=== PATIENT | male | born 1960 | race African-American/Black ===

== ENCOUNTER 2018-08-07 20:59 | Inpatient (IN) | payer OTHER ==
[~2018-08-07] VITALS: Ht 175.3 cm; Wt 86.9 kg
[~2018-08-07 20:59] MED LIST: [UNRECOGNIZED DRUG - REMARK]
[2018-08-07] MEDS ORDERED: ALBUTEROL (0.083%) 2.5MG/3ML NEB HHN STA (21:34)
[2018-08-07] MEDS ORDERED: IPRATROPIUM BROMIDE (0.02%) 0.5MG/2.5ML NEB HHN STA (21:34)
[2018-08-07] MEDS ORDERED: METHYLPREDNISOLONE SOD SUCC 125 MG/2 ML VIAL IV STA (21:34)
[2018-08-07] MEDS ORDERED: MAGNESIUM 2 G PREMIX 50 ML IV ONE (21:45)
[2018-08-07 23:14] LABS: BASOPHILS % 0.5 % (0.0-2.0); EOSINOPHILS % 0.6 % (0.0-5.0); HEMATOCRIT. 29.4 % (42.0-52.0); HEMOGLOBIN. 9.2 g/dL (14.0-18.0); LYMPHOCYTES % 13.8 % (20.0-50.0); MEAN CORPUSCULAR HEMOGLOBIN 25.7 pg (28.0-32.0); MEAN CORPUSCULAR VOLUME 81.6 fL (80.0-94.0); MEAN PLATELET VOLUME 8.1 fl (7.4-10.4); MONOCYTES % 7.7 % (2.0-8.0); NEUTROPHILS % 77.4 % (40.0-76.0); PLATELET 256 x1000/uL (130-400); RED CELL DISTRIBUTION WIDTH 20.6 % (11.6-14.6)
[2018-08-07 23:20] LABS: CHLORIDE 118 mEq/L (98-107)
[2018-08-07 23:24] LABS: INR 1.2; PROTHROMBIN TIME 12.5 sec (9.1-11.1)
[2018-08-07] MEDS ORDERED: NITROGLYCERIN OINT 1GM/INCH UDPKT TD ONE (23:30)
[2018-08-07] MEDS ORDERED: FUROSEMIDE 40MG/4ML VIAL IVP ONE (23:30)
[2018-08-08] VITALS (8 sets, daily range): BP systolic 145–222; BP diastolic 99–112
[2018-08-08] MEDS ORDERED: HYDRALAZINE 20MG/ML VIAL IV ONE ×2 (00:15→01:30)
[2018-08-08] MEDS ORDERED: NICARDIPINE 40MG/200ML PREMIX 200 ML IV SCH (04:45)
[2018-08-08] MEDS ORDERED: MAGNESIUM/ALUMINUM HYDROXIDE/SIMETHICONE 30ML UDC PO PRN (08:00)
[2018-08-08] MEDS ORDERED: ONDANSETRON HCL 4MG/2ML INJ IV PRN (08:00)
[2018-08-08] MEDS ORDERED: ACETAMINOPHEN 325MG TABLET PO PRN (08:00)
[2018-08-08] MEDS ORDERED: INSULIN REGULAR (HUMULIN R) 300UNITS/3ML SUBCUT NR (08:30)
[2018-08-08] MEDS ORDERED: HYDRALAZINE 20MG/ML VIAL IV NR ×2 (08:30→16:45)
[2018-08-08 09:12] LABS: PHOSPHORUS 3.9 mg/dL (2.5-4.9)
[2018-08-08] MEDS: CLONIDINE 0.1MG TABLET PO PRN ×2 (10:13→16:05)
[2018-08-08 11:15] LABS: HEPATITIS B SURFACE ANTIGEN NEGATIVE
[2018-08-08 11:45] LABS: HEPATITIS A AB IGM NEGATIVE (NEGATIVE)
[2018-08-08] MEDS: NICOTINE 14MG PATCH TD SCH (11:53)
[2018-08-08] MEDS: AMLODIPINE 5MG TABLET PO SCH ×2 (11:53→20:38)
[2018-08-08] MEDS: METHYLPREDNISOLONE SOD SUCC 40 MG/ML VIAL IV SCH ×2 (11:54→21:32)
[2018-08-08] MEDS ORDERED: NITROGLYCERIN OINT 1GM/INCH UDPKT TD SCH (12:01)
[2018-08-08 12:21] LABS: CREATINE KINASE 232 IU/L (39-308)
[2018-08-08] MEDS: IPRATROPIUM/ALBUTEROL 0.5-3(2.5)MG/3ML NEB HHN SCH ×3 (13:25→20:23)
[2018-08-08] MEDS ORDERED: DEXTROSE 50% WATER 50ML SYRINGE IV PRN (16:00)
[2018-08-08] MEDS: CLONIDINE 0.1MG TABLET PO SCH ×2 (16:04→21:37)
[2018-08-08] MEDS: INSULIN LISPRO 100 UNITS/ML SUBCUT SCH ×3 (16:06→20:38)
[2018-08-08] MEDS: BLOOD SUGAR DIAGNOSTIC STRIP TEST SCH ×2 (17:00→20:30)
[2018-08-08] MEDS: FUROSEMIDE 40MG/4ML VIAL IVP SCH (17:29)
[2018-08-08 20:08] LABS: CREATINE KINASE 178 IU/L (39-308)
[2018-08-08] MEDS ORDERED: INSULIN GLARGINE UD 100 UNITS/ML SYR SUBCUT SCH (22:00)
[2018-08-08 23:17] LABS: CREATINE KINASE 151 IU/L (39-308)
[2018-08-09] VITALS (78 sets, daily range): BP systolic 143–223; BP diastolic 54–135
[2018-08-09] MEDS: NITROGLYCERIN 50MG PREMIX 250 ML IV PRN ×6 (00:35→22:43)
[2018-08-09] MEDS: HYDROCODONE/ACETAMINOPHEN 5/325MG TABLET PO PRN ×2 (00:36→13:03)
[2018-08-09 01:12] LABS: CLARITY URINE CLOUDY (CLEAR); COLOR URINE YELLOW (YELLOW); KETONES URINE NEGATIVE (NEGATIVE); LEUKOCYTE ESTERASE URINE NEGATIVE (NEGATIVE); NITRITE URINE NEGATIVE (NEGATIVE); OCCULT BLOOD URINE NEGATIVE (NEGATIVE); PROTEIN URINE 3+ (NEGATIVE); SPECIFIC GRAVITY URINE 1.016 (1.005-1.030); UROBILINOGEN URINE 0.2 E.U./dL (0.2-1.0)
[2018-08-09 01:39] LABS: *AMPHETAMINES SCREEN URINE NEGATIVE (NEGATIVE)
[2018-08-09 01:40] LABS: *BARBITURATES SCREEN URINE NEGATIVE (NEGATIVE); *BENZODIAZEPINES SCREEN URINE NEGATIVE (NEGATIVE); *COCAINE SCREEN URINE NEGATIVE (NEGATIVE)
[2018-08-09 01:42] LABS: METHADONE URINE SCREEN NEGATIVE (NEGATIVE)
[2018-08-09 01:43] LABS: CANNABINOID URINE SCREEN PRESUMTIVE POSITIVE (NEGATIVE); OPIATES URINE SCREEN NEGATIVE (NEGATIVE); PHENCYCLIDINE URINE SCREEN NEGATIVE (NEGATIVE)
[2018-08-09] MEDS: IPRATROPIUM/ALBUTEROL 0.5-3(2.5)MG/3ML NEB HHN SCH ×3 (02:29→20:45)
[2018-08-09] MEDS: CLONIDINE 0.1MG TABLET PO PRN (03:23)
[2018-08-09] MEDS: METHYLPREDNISOLONE SOD SUCC 40 MG/ML VIAL IV SCH ×3 (05:26→21:47)
[2018-08-09] MEDS: CLONIDINE 0.1MG TABLET PO SCH (05:26)
[2018-08-09 06:01] LABS: HEMATOCRIT. 25.2 % (42.0-52.0); HEMOGLOBIN. 7.8 g/dL (14.0-18.0); MEAN CORPUSCULAR HEMOGLOBIN 25.6 pg (28.0-32.0); MEAN CORPUSCULAR VOLUME 82.4 fL (80.0-94.0); MEAN PLATELET VOLUME 8.2 fl (7.4-10.4); PLATELET 206 x1000/uL (130-400); RED BLOOD CELL COUNT 3.06 mill/uL (4.7-6.1); RED CELL DISTRIBUTION WIDTH 20.7 % (11.6-14.6)
[2018-08-09] MEDS: BLOOD SUGAR DIAGNOSTIC STRIP TEST SCH ×4 (06:03→21:00)
[2018-08-09] MEDS: FUROSEMIDE 40MG/4ML VIAL IVP SCH ×2 (06:15→17:58)
[2018-08-09] MEDS: INSULIN LISPRO 100 UNITS/ML SUBCUT SCH ×4 (06:15→21:49)
[2018-08-09 06:40] LABS: CHLORIDE 115 mEq/L (98-107)
[2018-08-09 06:49] LABS: LDL CHOLESTEROL 40 mg/dL (5-100)
[2018-08-09 06:50] LABS: HDL CHOLESTEROL 50 mg/dL (40-59)
[2018-08-09 08:15] LABS: HIV SCREEN 4G Non Reactive (Non Reactive)
[2018-08-09 08:30] LABS: PLATELET ESTIMATE NORMAL
[2018-08-09] MEDS ORDERED: SODIUM POLYSTYRENE SULFONATE 15 G/60 ML BOT PO SCH (08:30)
[2018-08-09] MEDS: AMLODIPINE 5MG TABLET PO SCH ×2 (08:42→21:48)
[2018-08-09] MEDS: CITRIC ACID/SODIUM CITRATE SOLN 30ML UDC PO SCH ×3 (08:42→17:00)
[2018-08-09] MEDS: NICOTINE 14MG PATCH TD SCH (08:43)
[2018-08-09 08:58] LABS: BG BASE EXCESS -6.4 mmol/L (-2.0-2.0); BG CARBOXYHEMOGLOBIN 0.6 % (0.5-1.5); BG DEOXYHEMOGLOBIN 3.5 % (0.0-5.0); BG FRACTION INSPIRED OXYGEN 28; BG HCO3 ACT 17.8 mmol/L (22.0-26.0); BG METHEMOGLOBIN 0.5 % (0.0-1.5); BG OXYGEN SATURATION 96.5 % (92.0-98.5); BG OXYHEMOGLOBIN 95.4 % (94.0-97.0); BG PCO2 30.2 mmHg (35.0-45.0); BG PH 7.388 (7.350-7.450); BG PO2 86.7 mmHg (75.0-100.0); BG SAMPLE SITE RIGHT RADIAL; BG TOTAL HEMOGLOBIN 8.6 g/dL (12.0-18.0); BG VENT MODE NASAL CANNULA
[2018-08-09] MEDS ORDERED: LIDOCAINE HCL 1% 20ML VIAL (Pyxis) INJ ONE (10:03)
[2018-08-09] MEDS ORDERED: LIDOCAINE HCL/EPINEPHRINE 1%-EPI 1:100,000 20 ML VIAL INFIL NR (12:00)
[2018-08-09] MEDS ORDERED: INSULIN GLARGINE UD 100 UNITS/ML SYR SUBCUT NR (12:00)
[2018-08-09] MEDS: CLONIDINE 0.2MG TABLET PO SCH ×2 (13:02→21:48)
[2018-08-09] MEDS ORDERED: MORPHINE SULFATE 4 MG/ML CPJ (NOT FOR IM USE) IV NR (15:00)
[2018-08-09] MEDS: HYDRALAZINE HCL 50MG TABLET PO SCH ×2 (15:13→21:48)
[2018-08-09] MEDS: CLONIDINE 0.2MG TABLET PO PRN (18:38)
[2018-08-09] MEDS ORDERED: EPOETIN ALFA 10000UNITS/ML VIAL SUBCUT SCH (21:00)
[2018-08-09] MEDS: INSULIN GLARGINE UD 100 UNITS/ML SYR SUBCUT SCH (22:44)
[2018-08-10] VITALS (87 sets, daily range): BP systolic 111–232; BP diastolic 56–156
[2018-08-10] MEDS: IPRATROPIUM/ALBUTEROL 0.5-3(2.5)MG/3ML NEB HHN SCH ×3 (01:04→21:11)
[2018-08-10 06:20] LABS: ANTI-NUCLEAR ANTIBODIES DIRECT Negative (Negative); COMPLEMENT C3 178 mg/dL (82-167)
[2018-08-10] MEDS: BLOOD SUGAR DIAGNOSTIC STRIP TEST SCH ×4 (06:30→21:17)
[2018-08-10] MEDS: METHYLPREDNISOLONE SOD SUCC 40 MG/ML VIAL IV SCH ×2 (06:43→17:19)
[2018-08-10] MEDS: HYDRALAZINE HCL 50MG TABLET PO SCH ×3 (06:44→21:27)
[2018-08-10] MEDS: CLONIDINE 0.2MG TABLET PO SCH ×3 (06:44→21:26)
[2018-08-10] MEDS: INSULIN LISPRO 100 UNITS/ML SUBCUT SCH ×4 (06:45→21:28)
[2018-08-10 07:30] LABS: HEMATOCRIT. 25.1 % (42.0-52.0); HEMOGLOBIN. 7.7 g/dL (14.0-18.0); MEAN CORPUSCULAR HEMOGLOBIN 25.6 pg (28.0-32.0); MEAN CORPUSCULAR VOLUME 83.5 fL (80.0-94.0); MEAN PLATELET VOLUME 8.3 fl (7.4-10.4); PLATELET 239 x1000/uL (130-400); RED BLOOD CELL COUNT 3.01 mill/uL (4.7-6.1); RED CELL DISTRIBUTION WIDTH 20.4 % (11.6-14.6)
[2018-08-10] MEDS ORDERED: LIDOCAINE HCL 1% 20ML VIAL (Pyxis) INJ ONE (07:51)
[2018-08-10] MEDS: CITRIC ACID/SODIUM CITRATE SOLN 30ML UDC PO SCH ×3 (09:00→17:19)
[2018-08-10] MEDS: FUROSEMIDE 40MG/4ML VIAL IVP SCH ×2 (09:14→17:19)
[2018-08-10] MEDS: AMLODIPINE 5MG TABLET PO SCH ×2 (09:14→21:26)
[2018-08-10] MEDS ORDERED: NICARDIPINE 100 MG in SODIUM CHLORIDE 0.9% 60 ML IV SCH (09:15)
[2018-08-10] MEDS: NICOTINE 14MG PATCH TD SCH (09:15)
[2018-08-10 09:59] LABS: INR 1.2; PARTIAL THROMBOPLASTIN TIME 27.1 sec (23.4-31.0); PROTHROMBIN TIME 11.9 sec (9.1-11.1)
[2018-08-10] MEDS: NICARDIPINE 100 MG in SODIUM CHLORIDE 0.9% 60 ML IV PRN ×2 (10:21→21:27)
[2018-08-10 10:38] LABS: PLATELET ESTIMATE NORMAL
[2018-08-10] MEDS: MORPHINE SULFATE 4 MG/ML CPJ (NOT FOR IM USE) IV PRN (10:43)
[2018-08-10] MEDS: INSULIN GLARGINE UD 100 UNITS/ML SYR SUBCUT SCH (21:28)
[2018-08-11] VITALS (52 sets, daily range): BP systolic 114–222; BP diastolic 51–107
[2018-08-11] MEDS: IPRATROPIUM/ALBUTEROL 0.5-3(2.5)MG/3ML NEB HHN SCH ×3 (02:23→20:34)
[2018-08-11] MEDS: MORPHINE SULFATE 4 MG/ML CPJ (NOT FOR IM USE) IV PRN ×3 (04:43→23:29)
[2018-08-11 04:51] LABS: HEMATOCRIT. 26.4 % (42.0-52.0); HEMOGLOBIN. 8.3 g/dL (14.0-18.0); MEAN CORPUSCULAR HEMOGLOBIN 25.7 pg (28.0-32.0); MEAN CORPUSCULAR VOLUME 81.9 fL (80.0-94.0); MEAN PLATELET VOLUME 7.7 fl (7.4-10.4); PLATELET 184 x1000/uL (130-400); RED BLOOD CELL COUNT 3.22 mill/uL (4.7-6.1); RED CELL DISTRIBUTION WIDTH 20.8 % (11.6-14.6)
[2018-08-11] MEDS: BLOOD SUGAR DIAGNOSTIC STRIP TEST SCH ×4 (06:20→21:15)
[2018-08-11] MEDS: METHYLPREDNISOLONE SOD SUCC 40 MG/ML VIAL IV SCH (06:28)
[2018-08-11] MEDS: FUROSEMIDE 40MG/4ML VIAL IVP SCH (06:28)
[2018-08-11] MEDS: HYDRALAZINE HCL 50MG TABLET PO SCH ×3 (06:29→21:16)
[2018-08-11] MEDS: CLONIDINE 0.2MG TABLET PO SCH (06:29)
[2018-08-11] MEDS: INSULIN LISPRO 100 UNITS/ML SUBCUT SCH ×4 (06:30→21:17)
[2018-08-11] MEDS: AMLODIPINE 5MG TABLET PO SCH ×2 (08:38→21:17)
[2018-08-11] MEDS: NICOTINE 14MG PATCH TD SCH (08:38)
[2018-08-11 08:57] LABS: TOTAL IRON BINDING CAPACITY 255 ug/dL (250-450)
[2018-08-11 10:45] LABS: PLATELET ESTIMATE NORMAL
[2018-08-11] MEDS: CLONIDINE 0.1MG TABLET PO SCH ×2 (14:11→21:16)
[2018-08-11] MEDS: BUDESONIDE 0.5MG/2ML NEB HHN SCH (20:36)
[2018-08-11] MEDS: INSULIN GLARGINE UD 100 UNITS/ML SYR SUBCUT SCH (21:18)
[2018-08-12] VITALS (80 sets, daily range): BP systolic 117–179; BP diastolic 59–103
[2018-08-12] MEDS: CLONIDINE 0.2MG TABLET PO PRN ×2 (00:36→18:38)
[2018-08-12] MEDS: IPRATROPIUM/ALBUTEROL 0.5-3(2.5)MG/3ML NEB HHN SCH ×4 (01:17→20:28)
[2018-08-12] MEDS: NICARDIPINE 100 MG in SODIUM CHLORIDE 0.9% 60 ML IV PRN (02:54)
[2018-08-12 05:52] LABS: HEMATOCRIT. 28.5 % (42.0-52.0); HEMOGLOBIN. 8.8 g/dL (14.0-18.0); MEAN CORPUSCULAR HEMOGLOBIN 25.9 pg (28.0-32.0); MEAN CORPUSCULAR VOLUME 83.8 fL (80.0-94.0); MEAN PLATELET VOLUME 7.8 fl (7.4-10.4); PLATELET 199 x1000/uL (130-400); RED CELL DISTRIBUTION WIDTH 20.3 % (11.6-14.6)
[2018-08-12] MEDS: BLOOD SUGAR DIAGNOSTIC STRIP TEST SCH ×4 (06:04→20:34)
[2018-08-12] MEDS: CLONIDINE 0.1MG TABLET PO SCH ×3 (06:09→21:26)
[2018-08-12] MEDS: HYDRALAZINE HCL 50MG TABLET PO SCH ×3 (06:09→21:26)
[2018-08-12] MEDS: INSULIN LISPRO 100 UNITS/ML SUBCUT SCH ×4 (06:10→20:34)
[2018-08-12] MEDS ORDERED: HEPARIN SODIUM 1,000 UNIT/1ML VIAL IV SCH (09:00)
[2018-08-12] MEDS: BUDESONIDE 0.5MG/2ML NEB HHN SCH ×2 (09:40→20:28)
[2018-08-12 11:13] LABS: PLATELET ESTIMATE NORMAL
[2018-08-12] MEDS: NIFEDIPINE XL 60MG TAB PO SCH ×2 (11:15→20:34)
[2018-08-12] MEDS: PREDNISONE 20MG TABLET PO SCH (11:15)
[2018-08-12] MEDS: NICOTINE 14MG PATCH TD SCH (11:15)
[2018-08-12] MEDS: MORPHINE SULFATE 4 MG/ML CPJ (NOT FOR IM USE) IV PRN ×2 (11:24→20:50)
[2018-08-12] MEDS: INSULIN GLARGINE UD 100 UNITS/ML SYR SUBCUT SCH (21:27)
[2018-08-13] VITALS (41 sets, daily range): BP systolic 122–176; BP diastolic 51–95
[2018-08-13] MEDS: IPRATROPIUM/ALBUTEROL 0.5-3(2.5)MG/3ML NEB HHN SCH ×4 (02:01→20:19)
[2018-08-13] MEDS: MORPHINE SULFATE 4 MG/ML CPJ (NOT FOR IM USE) IV PRN ×3 (02:24→12:45)
[2018-08-13] MEDS: CLONIDINE 0.2MG TABLET PO PRN (03:45)
[2018-08-13 05:47] LABS: HEMATOCRIT. 29.6 % (42.0-52.0); HEMOGLOBIN. 9.3 g/dL (14.0-18.0); MEAN CORPUSCULAR HEMOGLOBIN 25.7 pg (28.0-32.0); MEAN CORPUSCULAR VOLUME 81.8 fL (80.0-94.0); PLATELET 222 x1000/uL (130-400); RED BLOOD CELL COUNT 3.61 mill/uL (4.7-6.1)
[2018-08-13] MEDS: CLONIDINE 0.1MG TABLET PO SCH ×3 (05:51→20:53)
[2018-08-13] MEDS: HYDRALAZINE HCL 50MG TABLET PO SCH ×3 (05:51→20:53)
[2018-08-13] MEDS: INSULIN LISPRO 100 UNITS/ML SUBCUT SCH ×4 (05:51→20:52)
[2018-08-13] MEDS: BLOOD SUGAR DIAGNOSTIC STRIP TEST SCH ×4 (05:51→20:54)
[2018-08-13] MEDS: BUDESONIDE 0.5MG/2ML NEB HHN SCH ×2 (08:19→20:19)
[2018-08-13] MEDS: PREDNISONE 20MG TABLET PO SCH (08:33)
[2018-08-13] MEDS: NIFEDIPINE XL 60MG TAB PO SCH ×2 (08:33→20:52)
[2018-08-13] MEDS: NICOTINE 14MG PATCH TD SCH (08:34)
[2018-08-13] MEDS ORDERED: LACTULOSE 20G/30ML UDC PO NR (11:09)
[2018-08-13 14:10] LABS: PLATELET ESTIMATE NORMAL
[2018-08-13] MEDS: IRON SUCROSE COMPLEX 100 MG/5 ML ML IV SCH (14:21)
[2018-08-13] MEDS: LACTULOSE 20G/30ML UDC PO PRN (20:52)
[2018-08-13] MEDS: INSULIN GLARGINE UD 100 UNITS/ML SYR SUBCUT SCH (22:33)
[2018-08-14] VITALS (25 sets, daily range): BP systolic 138–202; BP diastolic 73–98
[2018-08-14] MEDS: CLONIDINE 0.2MG TABLET PO PRN (00:51)
[2018-08-14] MEDS ORDERED: [UNRECOGNIZED DRUG - REMARK] (03:24)
[2018-08-14 05:46] LABS: HEMATOCRIT. 29.6 % (42.0-52.0); HEMOGLOBIN. 9.1 g/dL (14.0-18.0); MEAN CORPUSCULAR HEMOGLOBIN 25.4 pg (28.0-32.0); MEAN CORPUSCULAR VOLUME 82.7 fL (80.0-94.0); PLATELET 215 x1000/uL (130-400); RED BLOOD CELL COUNT 3.58 mill/uL (4.7-6.1); RED CELL DISTRIBUTION WIDTH 20.4 % (11.6-14.6)
[2018-08-14] MEDS: INSULIN LISPRO 100 UNITS/ML SUBCUT SCH ×5 (06:39→21:20)
[2018-08-14] MEDS: CLONIDINE 0.1MG TABLET PO SCH (06:40)
[2018-08-14] MEDS: HYDRALAZINE HCL 50MG TABLET PO SCH ×3 (06:41→21:18)
[2018-08-14] MEDS: BLOOD SUGAR DIAGNOSTIC STRIP TEST SCH ×4 (06:41→21:00)
[2018-08-14] MEDS: MORPHINE SULFATE 4 MG/ML CPJ (NOT FOR IM USE) IV PRN (06:50)
[2018-08-14 07:20] LABS: PLATELET ESTIMATE NORMAL
[2018-08-14] MEDS: NICOTINE 14MG PATCH TD SCH (08:08)
[2018-08-14] MEDS: IRON SUCROSE COMPLEX 100 MG/5 ML ML IV SCH (08:08)
[2018-08-14] MEDS: NIFEDIPINE XL 60MG TAB PO SCH (08:09)
[2018-08-14] MEDS: PREDNISONE 20MG TABLET PO SCH (08:09)
[2018-08-14] MEDS: IPRATROPIUM/ALBUTEROL 0.5-3(2.5)MG/3ML NEB HHN SCH ×4 (08:35→19:55)
[2018-08-14] MEDS: BUDESONIDE 0.5MG/2ML NEB HHN SCH (08:35)
[2018-08-14] MEDS ORDERED: TERBUTALINE SULFATE 1MG/ML VIAL SUBCUT NR (14:00)
[2018-08-14] MEDS ORDERED: HEPARIN SODIUM 1,000 UNIT/1ML VIAL IV NR (15:00)
[2018-08-14] MEDS: DILTIAZEM HCL 60MG TABLET PO SCH ×2 (16:23→21:17)
[2018-08-14] MEDS: CLONIDINE 0.2MG TABLET PO SCH ×2 (16:23→21:18)
[2018-08-14] MEDS ORDERED: INSULIN GLARGINE UD 100 UNITS/ML SYR SUBCUT SCH (22:00)
[2018-08-15] VITALS (11 sets, daily range): BP systolic 123–154; BP diastolic 57–88
[2018-08-15] MEDS: IPRATROPIUM/ALBUTEROL 0.5-3(2.5)MG/3ML NEB HHN SCH ×4 (01:15→20:35)
[2018-08-15] MEDS: HYDRALAZINE HCL 50MG TABLET PO SCH ×3 (05:23→21:13)
[2018-08-15] MEDS: DILTIAZEM HCL 60MG TABLET PO SCH ×3 (05:24→21:13)
[2018-08-15] MEDS: CLONIDINE 0.2MG TABLET PO SCH ×3 (05:24→21:13)
[2018-08-15 07:56] LABS: BASOPHILS % 0.5 % (0.0-2.0); EOSINOPHILS % 0.7 % (0.0-5.0); HEMATOCRIT. 28.2 % (42.0-52.0); HEMOGLOBIN. 8.8 g/dL (14.0-18.0); LYMPHOCYTES % 10.7 % (20.0-50.0); MEAN CORPUSCULAR VOLUME 82.8 fL (80.0-94.0); MEAN PLATELET VOLUME 8.1 fl (7.4-10.4); MONOCYTES % 6.2 % (2.0-8.0); NEUTROPHILS % 81.9 % (40.0-76.0); PLATELET 186 x1000/uL (130-400); RED BLOOD CELL COUNT 3.41 mill/uL (4.7-6.1); RED CELL DISTRIBUTION WIDTH 20.1 % (11.6-14.6)
[2018-08-15] MEDS: INSULIN LISPRO 100 UNITS/ML SUBCUT SCH ×4 (08:00→21:00)
[2018-08-15] MEDS: BLOOD SUGAR DIAGNOSTIC STRIP TEST SCH ×4 (08:04→21:03)
[2018-08-15] MEDS: NICOTINE 14MG PATCH TD SCH (08:31)
[2018-08-15] MEDS: IRON SUCROSE COMPLEX 100 MG/5 ML ML IV SCH (08:31)
[2018-08-15] MEDS: PREDNISONE 20MG TABLET PO SCH (08:31)
[2018-08-15] MEDS ORDERED: TERBUTALINE SULFATE 1MG/ML VIAL SUBCUT NR (17:00)
[2018-08-15] MEDS: INSULIN GLARGINE UD 100 UNITS/ML SYR SUBCUT SCH (21:04)
[2018-08-15] MEDS: LACTULOSE 20G/30ML UDC PO PRN (21:13)
[2018-08-16] VITALS: BP 179/83
[2018-08-16] MEDS: IPRATROPIUM/ALBUTEROL 0.5-3(2.5)MG/3ML NEB HHN SCH ×4 (01:19→20:00)
[2018-08-16 04:20] VITALS: BP 167/79
[2018-08-16] MEDS: CLONIDINE 0.2MG TABLET PO SCH ×3 (06:11→23:29)
[2018-08-16] MEDS: HYDRALAZINE HCL 50MG TABLET PO SCH ×3 (06:11→21:53)
[2018-08-16] MEDS: DILTIAZEM HCL 60MG TABLET PO SCH ×3 (06:11→21:53)
[2018-08-16] MEDS: BLOOD SUGAR DIAGNOSTIC STRIP TEST SCH ×4 (06:12→21:43)
[2018-08-16] MEDS: INSULIN LISPRO 100 UNITS/ML SUBCUT SCH ×5 (06:12→21:56)
[2018-08-16 08:00] VITALS: BP 146/70
[2018-08-16] MEDS: NICOTINE 14MG PATCH TD SCH (09:00)
[2018-08-16] MEDS: PREDNISONE 20MG TABLET PO SCH (09:00)
[2018-08-16 12:04] VITALS: BP 137/68
[2018-08-16 16:16] VITALS: BP 189/78
[2018-08-16 20:00] VITALS: BP 172/82
[2018-08-16] MEDS: MORPHINE SULFATE 4 MG/ML CPJ (NOT FOR IM USE) IV PRN (21:03)
[2018-08-16] MEDS: INSULIN GLARGINE UD 100 UNITS/ML SYR SUBCUT SCH (21:56)
[2018-08-17] VITALS (18 sets, daily range): BP systolic 149–185; BP diastolic 75–89
[2018-08-17] MEDS: IPRATROPIUM/ALBUTEROL 0.5-3(2.5)MG/3ML NEB HHN SCH ×4 (00:28→20:57)
[2018-08-17] MEDS: HYDRALAZINE HCL 50MG TABLET PO SCH ×3 (05:07→21:40)
[2018-08-17] MEDS: DILTIAZEM HCL 60MG TABLET PO SCH ×3 (05:08→21:34)
[2018-08-17] MEDS: CLONIDINE 0.2MG TABLET PO SCH ×4 (05:08→21:34)
[2018-08-17] MEDS: MORPHINE SULFATE 4 MG/ML CPJ (NOT FOR IM USE) IV PRN ×2 (07:05→14:45)
[2018-08-17] MEDS: INSULIN LISPRO 100 UNITS/ML SUBCUT SCH ×4 (07:12→21:36)
[2018-08-17] MEDS: BLOOD SUGAR DIAGNOSTIC STRIP TEST SCH ×4 (07:12→21:00)
[2018-08-17] MEDS ORDERED: CEFAZOLIN 1000MG PREMIX 50 ML IV ONE ×2 (07:26→09:45)
[2018-08-17] MEDS ORDERED: SODIUM BICARBONATE 4% (2.4MEQ) 5ML VIAL IV ONE (07:26)
[2018-08-17] MEDS ORDERED: LIDOCAINE HCL 1% 20ML VIAL (Pyxis) INJ ONE (07:26)
[2018-08-17] MEDS: NICOTINE 14MG PATCH TD SCH (09:17)
[2018-08-17] MEDS: CLONIDINE 0.2MG TABLET PO PRN (09:18)
[2018-08-17] MEDS: PREDNISONE 20MG TABLET PO SCH (09:18)
[2018-08-17] MEDS ORDERED: LIDOCAINE HCL/EPINEPHRINE 1%-EPI 1:100,000 20 ML VIAL ONE (09:34)
[2018-08-17] MEDS ORDERED: HEPARIN 1000 UNITS/ML 10ML ONE (09:35)
[2018-08-17] MEDS ORDERED: FENTANYL CITRATE/PF 50MCG/ML 2ML VIAL ONE (10:02)
[2018-08-17 10:12] LABS: HEMATOCRIT. 29.2 % (42.0-52.0); HEMOGLOBIN. 9.1 g/dL (14.0-18.0); MEAN CORPUSCULAR HEMOGLOBIN 25.9 pg (28.0-32.0); MEAN PLATELET VOLUME 8.2 fl (7.4-10.4); PLATELET 222 x1000/uL (130-400); RED BLOOD CELL COUNT 3.52 mill/uL (4.7-6.1); RED CELL DISTRIBUTION WIDTH 19.7 % (11.6-14.6)
[2018-08-17] MEDS ORDERED: FENTANYL CITRATE/PF 50MCG/ML 2ML VIAL IV ONE (10:15)
[2018-08-17 14:21] LABS: PLATELET ESTIMATE NORMAL
[2018-08-17] MEDS: LACTULOSE 20G/30ML UDC PO PRN (17:26)
[2018-08-17] MEDS: BUDESONIDE 0.5MG/2ML NEB HHN SCH (20:56)
[2018-08-17] MEDS: INSULIN GLARGINE UD 100 UNITS/ML SYR SUBCUT SCH (21:37)
[2018-08-18] VITALS (8 sets, daily range): BP systolic 160–210; BP diastolic 82–112
[2018-08-18] MEDS: IPRATROPIUM/ALBUTEROL 0.5-3(2.5)MG/3ML NEB HHN SCH ×5 (01:36→20:45)
[2018-08-18] MEDS: BLOOD SUGAR DIAGNOSTIC STRIP TEST SCH ×4 (05:19→21:00)
[2018-08-18] MEDS: INSULIN LISPRO 100 UNITS/ML SUBCUT SCH ×4 (05:50→23:49)
[2018-08-18] MEDS: HYDRALAZINE HCL 50MG TABLET PO SCH ×3 (06:00→22:00)
[2018-08-18] MEDS: DILTIAZEM HCL 60MG TABLET PO SCH ×3 (06:00→22:00)
[2018-08-18] MEDS: CLONIDINE 0.2MG TABLET PO SCH ×3 (06:00→23:43)
[2018-08-18] MEDS: MORPHINE SULFATE 4 MG/ML CPJ (NOT FOR IM USE) IV PRN ×2 (06:03→16:12)
[2018-08-18] MEDS: BUDESONIDE 0.5MG/2ML NEB HHN SCH (08:57)
[2018-08-18] MEDS: PREDNISONE 20MG TABLET PO SCH (09:23)
[2018-08-18] MEDS: ZINC SULFATE 220 MG ( 50 ) CAPSULE PO SCH (09:23)
[2018-08-18] MEDS: FOLIC ACID/VITAMIN B COMP W-C TABLET PO SCH (09:23)
[2018-08-18] MEDS: ASCORBIC ACID 250 MG TABLET PO SCH ×2 (09:23→16:19)
[2018-08-18] MEDS: NICOTINE 14MG PATCH TD SCH (09:24)
[2018-08-18 16:38] LABS: HEMATOCRIT. 28.5 % (42.0-52.0); MEAN CORPUSCULAR HEMOGLOBIN 26.4 pg (28.0-32.0); MEAN CORPUSCULAR VOLUME 83.8 fL (80.0-94.0); MEAN PLATELET VOLUME 8.8 fl (7.4-10.4); PLATELET 197 x1000/uL (130-400); RED CELL DISTRIBUTION WIDTH 19.9 % (11.6-14.6)
[2018-08-18] MEDS: GUAIFENESIN 600MG ER TABLET PO SCH (21:00)
[2018-08-18 21:55] LABS: PLATELET ESTIMATE NORMAL
[2018-08-18] MEDS: INSULIN GLARGINE UD 100 UNITS/ML SYR SUBCUT SCH (23:50)
[2018-08-19] MEDS: DILTIAZEM HCL 60MG TABLET PO SCH ×4 (00:35→22:26)
[2018-08-19] MEDS: GUAIFENESIN 600MG ER TABLET PO SCH ×3 (00:36→21:00)
[2018-08-19] MEDS: HYDRALAZINE HCL 50MG TABLET PO SCH ×4 (00:36→22:25)
[2018-08-19] MEDS: IPRATROPIUM/ALBUTEROL 0.5-3(2.5)MG/3ML NEB HHN SCH ×4 (01:36→20:27)
[2018-08-19] MEDS: HYDRALAZINE 20MG/ML VIAL IV PRN ×3 (01:41→17:27)
[2018-08-19] MEDS: MORPHINE SULFATE 4 MG/ML CPJ (NOT FOR IM USE) IV PRN ×3 (01:50→17:21)
[2018-08-19] MEDS: IPRATROPIUM/ALBUTEROL 0.5-3(2.5)MG/3ML NEB INH PRN (03:51)
[2018-08-19 04:00] VITALS: BP 183/92
[2018-08-19] MEDS: BLOOD SUGAR DIAGNOSTIC STRIP TEST SCH ×4 (05:16→20:35)
[2018-08-19] MEDS: CLONIDINE 0.2MG TABLET PO SCH (05:33)
[2018-08-19] MEDS: INSULIN LISPRO 100 UNITS/ML SUBCUT SCH ×4 (05:37→20:50)
[2018-08-19 07:31] LABS: HEMATOCRIT. 29.2 % (42.0-52.0); HEMOGLOBIN. 9.2 g/dL (14.0-18.0); MEAN CORPUSCULAR HEMOGLOBIN 26.7 pg (28.0-32.0); MEAN CORPUSCULAR VOLUME 84.5 fL (80.0-94.0); MEAN PLATELET VOLUME 8.1 fl (7.4-10.4); PLATELET 204 x1000/uL (130-400); RED BLOOD CELL COUNT 3.46 mill/uL (4.7-6.1); RED CELL DISTRIBUTION WIDTH 20.1 % (11.6-14.6)
[2018-08-19 08:00] VITALS: BP 177/94
[2018-08-19] MEDS: FOLIC ACID/VITAMIN B COMP W-C TABLET PO SCH (09:10)
[2018-08-19] MEDS: NICOTINE 14MG PATCH TD SCH (09:10)
[2018-08-19] MEDS: ASCORBIC ACID 250 MG TABLET PO SCH ×2 (09:10→17:27)
[2018-08-19] MEDS: ZINC SULFATE 220 MG ( 50 ) CAPSULE PO SCH (09:11)
[2018-08-19] MEDS: PREDNISONE 20MG TABLET PO SCH (09:11)
[2018-08-19] MEDS: CLONIDINE 0.2MG TABLET PO PRN ×3 (09:11→17:27)
[2018-08-19] MEDS: BUDESONIDE 0.5MG/2ML NEB HHN SCH ×2 (09:37→20:27)
[2018-08-19 12:00] VITALS: BP 168/84
[2018-08-19] MEDS: CLONIDINE 0.3MG TABLET PO SCH ×2 (13:33→22:26)
[2018-08-19 14:17] LABS: PLATELET ESTIMATE NORMAL
[2018-08-19 16:00] VITALS: BP 161/87
[2018-08-19 20:00] VITALS: BP 155/78
[2018-08-19] MEDS: ENOXAPARIN 30MG/0.3ML SYR SUBCUT SCH (20:29)
[2018-08-19] MEDS: AMLODIPINE 5MG TABLET PO SCH (20:31)
[2018-08-19] MEDS: INSULIN GLARGINE UD 100 UNITS/ML SYR SUBCUT SCH (22:30)
[2018-08-20] VITALS: BP_SYST 155; BP_SYST 164; BP_SYST 165; BP_DIAS 75; BP_DIAS 78; BP_DIAS 81
[2018-08-20] MEDS: MORPHINE SULFATE 4 MG/ML CPJ (NOT FOR IM USE) IV PRN ×3 (00:43→17:46)
[2018-08-20] MEDS: IPRATROPIUM/ALBUTEROL 0.5-3(2.5)MG/3ML NEB INH PRN (03:02)
[2018-08-20] MEDS: IPRATROPIUM/ALBUTEROL 0.5-3(2.5)MG/3ML NEB HHN SCH ×4 (03:13→20:30)
[2018-08-20 04:00] VITALS: BP 183/95
[2018-08-20] MEDS: CLONIDINE 0.3MG TABLET PO SCH ×3 (05:55→21:22)
[2018-08-20] MEDS: DILTIAZEM HCL 60MG TABLET PO SCH ×3 (05:55→21:21)
[2018-08-20] MEDS: HYDRALAZINE HCL 50MG TABLET PO SCH ×3 (05:56→21:22)
[2018-08-20] MEDS: BLOOD SUGAR DIAGNOSTIC STRIP TEST SCH ×4 (05:59→21:10)
[2018-08-20] MEDS: INSULIN LISPRO 100 UNITS/ML SUBCUT SCH ×4 (06:17→21:19)
[2018-08-20 07:27] LABS: HEMATOCRIT. 27.8 % (42.0-52.0); HEMOGLOBIN. 8.8 g/dL (14.0-18.0); MEAN CORPUSCULAR HEMOGLOBIN 27.9 pg (28.0-32.0); MEAN CORPUSCULAR VOLUME 88.2 fL (80.0-94.0); MEAN PLATELET VOLUME 8.1 fl (7.4-10.4); PLATELET 198 x1000/uL (130-400); RED BLOOD CELL COUNT 3.16 mill/uL (4.7-6.1); RED CELL DISTRIBUTION WIDTH 20.4 % (11.6-14.6)
[2018-08-20 08:00] VITALS: BP 185/93
[2018-08-20 08:23] LABS: TOTAL IRON BINDING CAPACITY 274 ug/dL (250-450)
[2018-08-20] MEDS: GUAIFENESIN 600MG ER TABLET PO SCH ×2 (09:02→21:28)
[2018-08-20] MEDS: HYDRALAZINE 20MG/ML VIAL IV PRN (09:02)
[2018-08-20] MEDS: PREDNISONE 20MG TABLET PO SCH (09:03)
[2018-08-20] MEDS: AMLODIPINE 5MG TABLET PO SCH ×2 (09:03→21:21)
[2018-08-20] MEDS: CLONIDINE 0.2MG TABLET PO PRN (09:04)
[2018-08-20] MEDS: ENOXAPARIN 30MG/0.3ML SYR SUBCUT SCH ×2 (09:05→21:23)
[2018-08-20] MEDS: ZINC SULFATE 220 MG ( 50 ) CAPSULE PO SCH (09:05)
[2018-08-20] MEDS: NICOTINE 14MG PATCH TD SCH (09:05)
[2018-08-20] MEDS: BUDESONIDE 0.5MG/2ML NEB HHN SCH ×2 (09:35→20:20)
[2018-08-20 12:00] VITALS: BP 155/79
[2018-08-20] MEDS: FOLIC ACID/VITAMIN B COMP W-C TABLET PO SCH (13:24)
[2018-08-20] MEDS: ASCORBIC ACID 250 MG TABLET PO SCH ×2 (13:24→17:47)
[2018-08-20 16:00] VITALS: BP 141/71
[2018-08-20 18:02] LABS: PLATELET ESTIMATE NORMAL
[2018-08-20 20:00] VITALS: BP_SYST 144; BP_SYST 165; BP_DIAS 74; BP_DIAS 81
[2018-08-20] MEDS: INSULIN GLARGINE UD 100 UNITS/ML SYR SUBCUT SCH (21:19)
[2018-08-21] VITALS: BP_SYST 144; BP_SYST 165; BP_DIAS 74; BP_DIAS 81
[2018-08-21] MEDS: CLONIDINE 0.2MG TABLET PO PRN ×2 (00:49→20:35)
[2018-08-21] MEDS: IPRATROPIUM/ALBUTEROL 0.5-3(2.5)MG/3ML NEB HHN SCH ×4 (01:49→21:34)
[2018-08-21 04:00] VITALS: BP 180/91
[2018-08-21] MEDS: DILTIAZEM HCL 60MG TABLET PO SCH ×3 (06:00→21:51)
[2018-08-21] MEDS: CLONIDINE 0.3MG TABLET PO SCH ×3 (06:00→21:51)
[2018-08-21] MEDS: HYDRALAZINE HCL 50MG TABLET PO SCH ×3 (06:00→21:51)
[2018-08-21 06:06] LABS: HEMATOCRIT. 30.4 % (42.0-52.0); HEMOGLOBIN. 9.4 g/dL (14.0-18.0); MEAN CORPUSCULAR HEMOGLOBIN 25.7 pg (28.0-32.0); MEAN CORPUSCULAR VOLUME 82.6 fL (80.0-94.0); MEAN PLATELET VOLUME 8.2 fl (7.4-10.4); PLATELET 209 x1000/uL (130-400); RED BLOOD CELL COUNT 3.67 mill/uL (4.7-6.1)
[2018-08-21] MEDS: INSULIN LISPRO 100 UNITS/ML SUBCUT SCH ×4 (06:29→21:54)
[2018-08-21] MEDS: BLOOD SUGAR DIAGNOSTIC STRIP TEST SCH ×4 (06:29→21:56)
[2018-08-21] MEDS: GLIPIZIDE 5MG TABLET PO SCH (06:42)
[2018-08-21 08:00] VITALS: BP 192/97
[2018-08-21] MEDS: FOLIC ACID/VITAMIN B COMP W-C TABLET PO SCH (08:15)
[2018-08-21] MEDS: ASCORBIC ACID 250 MG TABLET PO SCH ×2 (08:15→17:52)
[2018-08-21] MEDS: AMLODIPINE 5MG TABLET PO SCH ×2 (08:15→21:52)
[2018-08-21] MEDS: ZINC SULFATE 220 MG ( 50 ) CAPSULE PO SCH (08:15)
[2018-08-21] MEDS: ENOXAPARIN 30MG/0.3ML SYR SUBCUT SCH ×2 (08:15→21:52)
[2018-08-21] MEDS: GUAIFENESIN 600MG ER TABLET PO SCH ×2 (08:15→21:50)
[2018-08-21] MEDS: NICOTINE 14MG PATCH TD SCH (08:16)
[2018-08-21 12:00] VITALS: BP 177/81
[2018-08-21 12:25] LABS: PLATELET ESTIMATE NORMAL
[2018-08-21 16:00] VITALS: BP 159/93
[2018-08-21] MEDS: HYDROCODONE/ACETAMINOPHEN 5/325MG TABLET PO PRN (18:15)
[2018-08-21 20:00] VITALS: BP 187/102
[2018-08-21] MEDS: INSULIN GLARGINE UD 100 UNITS/ML SYR SUBCUT SCH (21:55)
[2018-08-22] VITALS: BP 185/87
[2018-08-22] MEDS: IPRATROPIUM/ALBUTEROL 0.5-3(2.5)MG/3ML NEB HHN SCH ×4 (02:26→22:19)
[2018-08-22 04:00] VITALS: BP 138/68
[2018-08-22] MEDS: DILTIAZEM HCL 60MG TABLET PO SCH ×3 (05:32→22:11)
[2018-08-22] MEDS: CLONIDINE 0.3MG TABLET PO SCH ×3 (05:33→22:10)
[2018-08-22] MEDS: HYDRALAZINE HCL 50MG TABLET PO SCH ×3 (05:33→22:11)
[2018-08-22] MEDS: GLIPIZIDE 5MG TABLET PO SCH (06:40)
[2018-08-22] MEDS: INSULIN LISPRO 100 UNITS/ML SUBCUT SCH ×4 (06:40→20:32)
[2018-08-22] MEDS: BLOOD SUGAR DIAGNOSTIC STRIP TEST SCH ×4 (06:40→20:32)
[2018-08-22 06:47] LABS: HEMATOCRIT. 29.2 % (42.0-52.0); HEMOGLOBIN. 9.1 g/dL (14.0-18.0); MEAN CORPUSCULAR HEMOGLOBIN 25.7 pg (28.0-32.0); MEAN PLATELET VOLUME 8.2 fl (7.4-10.4); PLATELET 188 x1000/uL (130-400); RED BLOOD CELL COUNT 3.52 mill/uL (4.7-6.1); RED CELL DISTRIBUTION WIDTH 20.3 % (11.6-14.6)
[2018-08-22 08:00] VITALS: BP 130/69
[2018-08-22] MEDS: ZINC SULFATE 220 MG ( 50 ) CAPSULE PO SCH (08:34)
[2018-08-22] MEDS: ASCORBIC ACID 250 MG TABLET PO SCH ×2 (08:34→17:00)
[2018-08-22] MEDS: GUAIFENESIN 600MG ER TABLET PO SCH ×2 (08:34→20:31)
[2018-08-22] MEDS: FOLIC ACID/VITAMIN B COMP W-C TABLET PO SCH (08:34)
[2018-08-22] MEDS: ENOXAPARIN 30MG/0.3ML SYR SUBCUT SCH (08:35)
[2018-08-22] MEDS: NICOTINE 14MG PATCH TD SCH (08:35)
[2018-08-22] MEDS: AMLODIPINE 5MG TABLET PO SCH ×2 (08:35→20:32)
[2018-08-22 09:46] LABS: PLATELET ESTIMATE NORMAL
[2018-08-22 12:00] VITALS: BP 136/89
[2018-08-22 16:00] VITALS: BP 131/76
[2018-08-22 20:00] VITALS: BP 164/81
[2018-08-22] MEDS: HYDROCODONE/ACETAMINOPHEN 5/325MG TABLET PO PRN (20:44)
[2018-08-22] MEDS: INSULIN GLARGINE UD 100 UNITS/ML SYR SUBCUT SCH (22:14)
[2018-08-23] VITALS: BP 135/69
[2018-08-23] MEDS: IPRATROPIUM/ALBUTEROL 0.5-3(2.5)MG/3ML NEB HHN SCH ×4 (03:07→20:32)
[2018-08-23 04:00] VITALS: BP 169/77
[2018-08-23] MEDS: HYDRALAZINE HCL 50MG TABLET PO SCH ×3 (06:46→22:00)
[2018-08-23] MEDS: CLONIDINE 0.3MG TABLET PO SCH ×3 (06:46→22:00)
[2018-08-23] MEDS: DILTIAZEM HCL 60MG TABLET PO SCH ×3 (06:47→22:00)
[2018-08-23] MEDS: GLIPIZIDE 5MG TABLET PO SCH (06:50)
[2018-08-23] MEDS: HYDROCODONE/ACETAMINOPHEN 5/325MG TABLET PO PRN ×2 (06:59→11:57)
[2018-08-23] MEDS: BLOOD SUGAR DIAGNOSTIC STRIP TEST SCH ×4 (07:10→21:00)
[2018-08-23] MEDS: INSULIN LISPRO 100 UNITS/ML SUBCUT SCH ×4 (07:20→21:00)
[2018-08-23 08:00] VITALS: BP 120/66
[2018-08-23] MEDS: FOLIC ACID/VITAMIN B COMP W-C TABLET PO SCH (09:46)
[2018-08-23] MEDS: GUAIFENESIN 600MG ER TABLET PO SCH ×2 (09:46→21:25)
[2018-08-23] MEDS: ZINC SULFATE 220 MG ( 50 ) CAPSULE PO SCH (09:46)
[2018-08-23] MEDS: NICOTINE 14MG PATCH TD SCH (09:46)
[2018-08-23] MEDS: ASCORBIC ACID 250 MG TABLET PO SCH ×2 (09:47→17:49)
[2018-08-23] MEDS: AMLODIPINE 5MG TABLET PO SCH ×2 (09:47→21:26)
[2018-08-23] MEDS: ENOXAPARIN 40MG/0.4ML SYR SUBCUT SCH (09:47)
[2018-08-23 10:51] LABS: HEMATOCRIT. 27.4 % (42.0-52.0); HEMOGLOBIN. 8.5 g/dL (14.0-18.0); MEAN CORPUSCULAR HEMOGLOBIN 25.8 pg (28.0-32.0); MEAN CORPUSCULAR VOLUME 83.3 fL (80.0-94.0); MEAN PLATELET VOLUME 8.3 fl (7.4-10.4); PLATELET 173 x1000/uL (130-400); RED BLOOD CELL COUNT 3.28 mill/uL (4.7-6.1); RED CELL DISTRIBUTION WIDTH 20.5 % (11.6-14.6)
[2018-08-23 11:22] LABS: PLATELET ESTIMATE NORMAL
[2018-08-23 12:00] VITALS: BP 127/68
[2018-08-23] MEDS ORDERED: BENZONATATE 100MG CAPSULE PO PRN (13:45)
[2018-08-23 16:53] VITALS: BP 130/70
[2018-08-23 20:00] VITALS: BP 147/77
[2018-08-23] MEDS ORDERED: INSULIN GLARGINE UD 100 UNITS/ML SYR SUBCUT SCH (22:00)
[2018-08-24] VITALS (9 sets, daily range): BP systolic 124–168; BP diastolic 60–98
[2018-08-24] MEDS: IPRATROPIUM/ALBUTEROL 0.5-3(2.5)MG/3ML NEB HHN SCH ×3 (01:35→21:15)
[2018-08-24] MEDS: HYDROCODONE/ACETAMINOPHEN 5/325MG TABLET PO PRN ×2 (04:44→08:53)
[2018-08-24] MEDS: CLONIDINE 0.3MG TABLET PO SCH ×3 (05:36→22:29)
[2018-08-24] MEDS: DILTIAZEM HCL 60MG TABLET PO SCH ×3 (05:38→22:29)
[2018-08-24] MEDS: HYDRALAZINE HCL 50MG TABLET PO SCH ×3 (05:43→22:28)
[2018-08-24] MEDS: GLIPIZIDE 5MG TABLET PO SCH (06:32)
[2018-08-24] MEDS: INSULIN LISPRO 100 UNITS/ML SUBCUT SCH ×4 (07:07→21:00)
[2018-08-24] MEDS: BLOOD SUGAR DIAGNOSTIC STRIP TEST SCH ×4 (07:07→21:00)
[2018-08-24 07:36] LABS: HEMATOCRIT. 27.9 % (42.0-52.0); HEMOGLOBIN. 8.6 g/dL (14.0-18.0); MEAN CORPUSCULAR HEMOGLOBIN 25.9 pg (28.0-32.0); MEAN CORPUSCULAR VOLUME 83.6 fL (80.0-94.0); MEAN PLATELET VOLUME 8.2 fl (7.4-10.4); PLATELET 169 x1000/uL (130-400); RED BLOOD CELL COUNT 3.33 mill/uL (4.7-6.1); RED CELL DISTRIBUTION WIDTH 20.9 % (11.6-14.6)
[2018-08-24] MEDS: ENOXAPARIN 40MG/0.4ML SYR SUBCUT SCH (08:52)
[2018-08-24] MEDS: ZINC SULFATE 220 MG ( 50 ) CAPSULE PO SCH (08:53)
[2018-08-24] MEDS: ASCORBIC ACID 250 MG TABLET PO SCH ×2 (08:53→20:16)
[2018-08-24] MEDS: GUAIFENESIN 600MG ER TABLET PO SCH (08:53)
[2018-08-24] MEDS: NICOTINE 14MG PATCH TD SCH (08:55)
[2018-08-24] MEDS: FOLIC ACID/VITAMIN B COMP W-C TABLET PO SCH (09:04)
[2018-08-24] MEDS: AMLODIPINE 5MG TABLET PO SCH ×2 (11:00→22:28)
[2018-08-24 11:47] LABS: ATYPICAL LYMPHOCYTES 1
[2018-08-24 11:48] LABS: PLATELET ESTIMATE NORMAL
[2018-08-24] MEDS: CLONIDINE 0.2MG TABLET PO PRN (15:13)
== END 2018-08-24 22:40 | DRG 313 ==
LOC: ER 20:59 → 3WST 08-08 00:36 → EDBEDREQTM 08-08 00:39 → EDBEDREQ 08-08 00:39 → EDBEDREQDT 08-08 00:39 → EDBEDREQSVC 08-08 00:42 → ENRESERV 08-08 07:47 → MICUSO 08-08 23:50 → 5EST 08-14 17:26 → 8WST 08-16 04:27
PROVIDERS: ADMIT Internal Medicine; ATTEND Internal Medicine
PROC: 5A09357 Assistance with Respiratory Ventilation, Less than 24 Consecutive Hours, Continuous Positive Airway Pressure (ICD-10-PCS; 2018-08-07)
PROC: 02HV33Z Insertion of Infusion Device into Superior Vena Cava, Percutaneous Approach (ICD-10-PCS; 2018-08-09)
PROC: B548ZZA Ultrasonography of Superior Vena Cava, Guidance (ICD-10-PCS; 2018-08-09)
PROC: 0QBG0ZZ Excision of Right Tibia, Open Approach (ICD-10-PCS; principal; 2018-08-10)
PROC: 06HY33Z Insertion of Infusion Device into Lower Vein, Percutaneous Approach (ICD-10-PCS; 2018-08-10)
PROC: B54BZZA Ultrasonography of Right Lower Extremity Veins, Guidance (ICD-10-PCS; 2018-08-10)
PROC: 05JYXZZ Inspection of Upper Vein, External Approach (ICD-10-PCS; 2018-08-10)
PROC: 0QBJ0ZZ Excision of Right Fibula, Open Approach (ICD-10-PCS; 2018-08-10)
PROC: 0JH63XZ Insertion of Tunneled Vascular Access Device into Chest Subcutaneous Tissue and Fascia, Percutaneous Approach (ICD-10-PCS; 2018-08-17)
PROC: 02HV33Z Insertion of Infusion Device into Superior Vena Cava, Percutaneous Approach (ICD-10-PCS; 2018-08-17)
PROC: B518ZZA Fluoroscopy of Superior Vena Cava, Guidance (ICD-10-PCS; 2018-08-17)
PROC: B548ZZA Ultrasonography of Superior Vena Cava, Guidance (ICD-10-PCS; 2018-08-17)
DX: T87.81 Dehiscence of amputation stump (principal); J96.00 Acute respiratory failure, unspecified whether with hypoxia or hypercapnia; E43 Unspecified severe protein-calorie malnutrition; A41.9 Sepsis, unspecified organism; I50.43 Acute on chronic combined systolic (congestive) and diastolic (congestive) heart failure; N17.9 Acute kidney failure, unspecified; N18.3 Chronic kidney disease, stage 3 (moderate); I69.354 Hemiplegia and hemiparesis following cerebral infarction affecting left non-dominant side; I27.20 Pulmonary hypertension, unspecified; E11.65 Type 2 diabetes mellitus with hyperglycemia; E87.0 Hyperosmolality and hypernatremia; E87.5 Hyperkalemia; E11.22 Type 2 diabetes mellitus with diabetic chronic kidney disease; D64.9 Anemia, unspecified; I16.9 Hypertensive crisis, unspecified; I13.0 Hypertensive heart and chronic kidney disease with heart failure and stage 1 through stage 4 chronic kidney disease, or unspecified chronic kidney disease; G47.33 Obstructive sleep apnea (adult) (pediatric); R59.0 Localized enlarged lymph nodes; R00.1 Bradycardia, unspecified; J44.1 Chronic obstructive pulmonary disease with (acute) exacerbation; I70.201 Unspecified atherosclerosis of native arteries of extremities, right leg; Y83.5 Amputation of limb(s) as the cause of abnormal reaction of the patient, or of later complication, without mention of misadventure at the time of the procedure; T87.89 Other complications of amputation stump; D63.8 Anemia in other chronic diseases classified elsewhere; E11.52 Type 2 diabetes mellitus with diabetic peripheral angiopathy with gangrene; E11.621 Type 2 diabetes mellitus with foot ulcer; L97.529 Non-pressure chronic ulcer of other part of left foot with unspecified severity; F17.210 Nicotine dependence, cigarettes, uncomplicated; F12.90 Cannabis use, unspecified, uncomplicated; E66.09 Other obesity due to excess calories; T38.0X5A Adverse effect of glucocorticoids and synthetic analogues, initial encounter; Y92.89 Other specified places as the place of occurrence of the external cause; Z89.511 Acquired absence of right leg below knee; Z71.6 Tobacco abuse counseling; Z89.422 Acquired absence of other left toe(s); Z91.19 Patient's noncompliance with other medical treatment and regimen; Z68.28 Body mass index [BMI] 28.0-28.9, adult
CPT/HCPCS: 36415; 36558; 36569; 36589; 36600; 71045; 71250; 73590; 76770; 76937; 77001; 78582; 80048; 80061; 80305; 82270; 82375; 82550; 82728; 82805; 82962; 83036; 83540; 83550; 83605; 83735; 83880; 84100; 84134; 84443; 84484; 85044; 85379; 85651; 86038; 86140; 86160; 86705; 86706; 86709; 86803; 87340; 87389; 87804; 93005; 93306; 93922; 93970; 94640; 94660; 96365; 96366; 96375; 96376; 97162; 97164; 97166; 97530; 97535; 99291; A9558; C1725; C1750; C1752; C1769; C1887; J0360; J0690; J1644; J1650; J1815; J1940; J2270; J2920; J2930; J3010; J3105; J3475; J3490; J7040; J7050; J7512; J7611; J7620; J7626; A4315